=== PATIENT | female | born 1945 | race Caucasian/White ===

== ENCOUNTER → 2016-10-23 | Outpatient (CLI) | payer MEDICARE, OTHER ==
[2015-01-19 16:37] VITALS: BP 127/88
[~2016-10-23] MED LIST: ACET325T9 PO; CALC-77 PO; CETI10CA PO; CLOP75TA57 PO; CRESTOR5 MG PO; GABA-585 PO; LISI1TAB3 PO; OMEP10CA PO
--- NOTE | 2016-10-23 15:20 | RAD ---
INDICATION: SHORTNESS OF BREATH X 10 DAYS COMPARISON: 10/03/2014 FINDINGS: 2 views of chest obtained. Degenerative changes of spine with osteophyte formation. Calcific atherosclerosis without enlargement of cardiac silhouette. Partial visualization of postoperative changes lower cervical spine status post fusion. No definite focal airspace consolidation IMPRESSION: No focal airspace consolidation or edema.
== END | disposition home or self-care (01) ==
LOC: DXRADRC 14:51
PROVIDERS: ATTEND Nurse Practitioner Family
DX: R06.02 Shortness of breath (principal); I70.8 Atherosclerosis of other arteries
CPT/HCPCS: 71020

== ENCOUNTER → 2016-10-26 | Outpatient (CLI) | payer MEDICARE, OTHER ==
[2015-01-19 16:37] VITALS: BP 127/88
[~2016-10-26] MED LIST changes: +IOHEXOL 300 MG/ML 75 ML VIAL. IV ONE; +OXYC-323 PO
--- NOTE | 2016-10-26 15:51 | RAD ---
CT CHEST WITH CONTRAST, PULMONARY ANGIOGRAM History: SOA, increased D-Dimer Comparison: CTA chest dated 10/12/2014 Technique: Helical CT of the chest was performed after the administration of 75 cc of Omnipaque 300 intravenous contrast according to PE protocol. 3-D MIP coronal reconstruction was performed to better evaluate the pulmonary arteries. Findings: Pulmonary arteries are adequately opacified. There is no evidence of pulmonary embolism. The thyroid is symmetric. There is no axillary, mediastinal, or hilar adenopathy. The thoracic aorta diameter is normal. Mild atherosclerosis of the thoracic aorta and its branches. Coronary artery calcifications. Aortic valvular calcifications. Borderline cardiomegaly. Trace pericardial effusion. Biapical subpleural fibrosis. There is no suspicious pulmonary nodule. There is no focal consolidation. No pleural effusion is observed. There is no pneumothorax. The visualized upper abdomen is unremarkable. There are degenerative changes of the thoracic spine. Incompletely visualized anterior cervical fusion hardware. IMPRESSION: 1. There is no CT evidence of pulmonary embolus. 2. Borderline cardiomegaly with trace pericardial effusion. PQRS Compliance Statement: One or more of the following individualized dose reduction techniques were utilized for this examination: 1. Automated exposure control 2. Adjustment of the mA and/or kV according to patient size 3. Use of iterative reconstruction technique
== END | disposition home or self-care (01) ==
LOC: DXRAD 09:07
PROVIDERS: ATTEND Nurse Practitioner Family
DX: I31.3 Pericardial effusion (noninflammatory) (principal); R79.89 Other specified abnormal findings of blood chemistry; I70.0 Atherosclerosis of aorta; I25.10 Atherosclerotic heart disease of native coronary artery without angina pectoris; J94.1 Fibrothorax; M47.894 Other spondylosis, thoracic region
CPT/HCPCS: 71275; Q9967

== ENCOUNTER 2016-10-28 11:52 | Emergency (ER) | payer MEDICARE, OTHER ==
[~2016-10-28] VITALS: Ht 154.9 cm; Wt 59.0 kg
[~2016-10-28 11:52] MED LIST changes: -IOHEXOL 300 MG/ML 75 ML VIAL. IV ONE; -OXYC-323 PO
--- NOTE | 2016-10-28 12:24 | PHYS DOC ---
Past History Past Medical History: Hypertension Past Surgical History: Appendectomy, Hysterectomy, Tonsillectomy Alcohol Use: Rarely Drug Use: None Adult General Chief Complaint Chief Complaint: MECHANICAL FALL HPI HPI Patient is a 70 year old female who presents with complaint of low back pain. Patient states that she injured her back approximately 2-3 hours ago after attempting to move furniture in her home. Patient states that she slipped out of her shoe that caused her to lose her balance and fall directly onto her buttocks. Patient states that she felt severe pain in her mid lower back. The patient states that her symptoms have progressively worsened. Patient states that she has pain with sitting and with movement of her low back. Patient denies radiation of pain into her lower extremities. Patient states that she has developed tightness along her pelvis. Patient states that she has been able to ambulate since the fall but states that this has become increasingly more difficult. Patient rates her pain as 8 out of 10. Patient took Tylenol with no relief of symptoms. Patient has history of rheumatoid arthritis and has had history of transverse myelitis but states that her symptoms have nearly resolved from this episode. Patient states that she did not hit her head, lose consciousness, and is not currently on any blood thinner medication. Review of Systems Review of Systems Constitutional: Denies fever or chills [] Eyes: Denies change in visual acuity, redness, or eye pain [] HENT: Denies nasal congestion or sore throat [] Respiratory: Denies cough or shortness of breath [] Cardiovascular: Denies chest pain or edema [] GI: Denies abdominal pain, nausea, vomiting, bloody stools or diarrhea [] : Denies dysuria or hematuria [] Musculoskeletal: Low back pain [] Integument: Denies rash or skin lesions [] Neurologic: Denies headache, focal weakness or sensory changes [] Allergies Allergies Allergies Coded Allergies Type Severity Reaction Last Updated Verified ibuprofen Allergy Severe 01/19/15 Yes aspirin Allergy Intermediate 01/19/15 Yes Physical Exam Physical Exam Constitutional: Alert, afebrile, appears in moderate to severe discomfort. [] HENT: Normocephalic, atraumatic, bilateral external ears normal, oropharynx moist, no oral exudates, nose normal. [] Eyes: PERRLA, EOMI, conjunctiva normal, no discharge. [] Neck: Normal range of motion, no tenderness, supple, no stridor. [] Cardiovascular:Heart rate regular rhythm, no murmur [] Lungs & Thorax: Bilateral breath sounds clear to auscultation [] Abdomen: Bowel sounds normal, soft, no tenderness, no masses, no pulsatile masses. [] Skin: Warm, dry, no erythema, no rash. [] Back: Lower lumbar midline tenderness to palpation, no crepitus or step-offs, bilateral lower lumbar paraspinous muscle tenderness to palpation. [] Extremities: No tenderness, no cyanosis, no clubbing, ROM intact, no edema. [] Neurologic: Alert and oriented X 3, normal motor function, normal sensory function, no focal deficits noted. [] Current Patient Data Vital Signs Vital Signs Date Time Temp Pulse Resp B/P (MAP) Pulse Ox O2 Delivery O2 Flow Rate FiO2 10/28/16 12:58 10 97 Room Air 10/28/16 12:00 97.8 72 EKG EKG Not performed [] Radiology/Procedures Radiology/[place] [address] IMAGING REPORT Signed PATIENT: CHERYL PAVON ACCOUNT: [id number] : 1945 LOCATION: ER AGE: 70 SEX: F EXAM STATUS: REG ER ORD. PHYSICIAN: DOREEN LEE MD REASON: lower lumbar midline pain status post fall PROCEDURE: LUMBAR SPINE 2-3V Lumbar spine 3 views 10/28/2016 Indication: Low midline back pain post fall. Comparison: None. Findings: There is mild levoconvex lumbar scoliosis. There are mild multilevel lower thoracic and lumbar superior endplate compression deformities at T12, L1, L2, L3, L4 and L5 which are age indeterminate. There is suggestion of an acute fracture line at the superior endplate of L3. No bony retropulsion. There is multilevel lower lumbar facet arthropathy greatest at L4-L5 and L5-S1. Mild multilevel degenerative disc disease with disc space narrowing through the lumbar spine greatest at L4-L5 and L5-S1. There is calcified atheromatous disease of the abdominal aorta. Sacroiliac joints are grossly unremarkable. Impression: 1. Mild age indeterminate multilevel severe endplate compression deformities from T12-L5 without significant bony retropulsion, though there is possibility of an acute fracture line at the anterior-superior L3 vertebral body. If further evaluation is clinically indicated, noncontrast CT L spine could be obtained. 2. Mild multilevel lower lumbar disc degeneration greatest at L4-L5 and L5-S1. 3. Moderate facet hypertrophy at L5-S1. DICTATED AND SIGNED BY: JENNIFER LAKE MD DATE: 10/28/16 1301 CC: DOREEN LEE MD; FILEMON WYNN APRN ~ [address] [address] IMAGING REPORT Signed PATIENT: CHERYL PAVON ACCOUNT: [id number] : 1945 LOCATION: ER AGE: 70 SEX: F EXAM STATUS: REG ER ORD. PHYSICIAN: DOREEN LEE MD REASON: possible acute L3 compression fracture PROCEDURE: CT LUMBAR SPINE WO CONTRAST CT lumbar spine without contrast 10/28/2016 Clinical indication: Possible acute L3 vertebral body fracture. Comparison: Same day L spine radiograph Technique: CT helical acquisition of the lumbar spine without contrast. Coronal and sagittal reformations were obtained from the axial imaged data set. PQRS Compliance Statement: One or more of the following individualized dose reduction techniques were utilized for this examination: 1. Automated exposure control 2. Adjustment of the mA and/or kV according to patient size 3. Use of iterative reconstruction technique CT L-spine: There is mild left convexity lumbar scoliosis. 2 mm of anterolisthesis of L3 on L4. There is diffuse bony demineralization with low attenuation at L1 vertebral body suggestive of osteoporosis. There is mild anterior-superior compression deformities at L1 and L3 with acute appearing fracture lines involving the anterior one half of the vertebral bodies with less than 20% of height loss and no significant bony retropulsion. There is mild, less than 20% to endplate compression deformity at L2 and L4 with no associated acute fracture lines, likely chronic. There is moderate facet hypertrophy on the right at L3-L4. There is multilevel degenerative disc disease of the lumbar spine with disc space narrowing greatest at L3 L4-1 mild degree with concentric disc bulging and a combination with facet hypertrophy with no significant neural foraminal narrowing. At L4-L5, there is a right neural foraminal disc osteophyte protrusion resulting in moderate right neural foraminal narrowing. The paraspinal soft tissues are within normal limits. Calcified atheromatous disease of the visualized abdominal aorta. Impression: 1. Mild acute appearing anterior-superior compression fractures at L1 and L3 vertebral bodies with less than 20% height loss and no significant bony retropulsion. 2. Lumbar disc degeneration and facet hypertrophy resulting in moderate right neural foraminal narrowing at L4-L5. DICTATED AND SIGNED BY: JENNIFER LAKE MD DATE: 10/28/16 7764 CC: DOREEN LEE MD; FILEMON WYNN APRN ~ [] Course & Med Decision Making Course & Med Decision Making Pertinent Labs and Imaging studies reviewed. (See chart for details) The patient was given IM Dilaudid and Decadron in the emergency department. Patient's imaging shows acute fractures of this. Plates of L1 and L3 which appear stable. On reevaluation, the patient states that her pain has improved with medications and patient is able to ambulate in the emergency department to the restroom and back. After discussing with the patient, she would like to pursue outpatient therapy. Patient will continue on oral Percocet for treatment of pain with advise follow-up in the next 2 days with patient's primary doctor for reevaluation. Advised return emergency department for any worsening symptoms. Patient voiced understanding and in agreement with treatment plan. Dragon Disclaimer Dragon Disclaimer This chart was dictated in whole or in part using Voice Recognition software in a busy, high-work load, and often noisy Emergency Department environment. It may contain unintended and wholly unrecognized errors or omissions. Departure Departure: Impression: Primary Impression: Compression fracture of first lumbar vertebra Additional Impression: Compression fracture of third lumbar vertebra Disposition: 01 HOME, SELF-CARE Condition: IMPROVED Referrals: FILEMON WYNN APRN (PCP) Patient Instructions: Back, Compression Fracture Additional Instructions: Follow-up with your primary doctor in 2 days for reevaluation. You may ambulate as tolerated. No heavy lifting greater than 5 pounds, no bending over or stooping. Return to the emergency department for any worsening symptoms. Scripts Oxycodone Hcl/Acetaminophen (PERCOCET 5-325 MG TABLET) 1 Each Tablet 1-2 TAB PO Q4-6HRS Y for PAIN, #40 TAB Prov: DOREEN LEE MD 10/28/16 Problem Qualifiers Primary Impression: Compression fracture of first lumbar vertebra Encounter type: initial encounter Fracture type: closed Qualified Codes: S32.010A - Wedge compression fracture of first lumbar vertebra, initial encounter for closed fracture Additional Impression: Compression fracture of third lumbar vertebra Encounter type: initial encounter Fracture type: closed Qualified Codes: S32.030A - Wedge compression fracture of third lumbar vertebra, initial encounter for closed fracture DOREEN LEE MD Oct 28, 2016 12:24
[2016-10-28] MEDS ORDERED: HYDROmorphone PF 1 MG/ML DISP.SYRIN IM ONE (12:30)
[2016-10-28] MEDS ORDERED: DEXAMETHASONE SOD PHOS 10 MG/ML VIAL IM ONE (12:45)
--- NOTE | 2016-10-28 13:10 | RAD ---
Lumbar spine 3 views 10/28/2016 Indication: Low midline back pain post fall. Comparison: None. Findings: There is mild levoconvex lumbar scoliosis. There are mild multilevel lower thoracic and lumbar superior endplate compression deformities at T12, L1, L2, L3, L4 and L5 which are age indeterminate. There is suggestion of an acute fracture line at the superior endplate of L3. No bony retropulsion. There is multilevel lower lumbar facet arthropathy greatest at L4-L5 and L5-S1. Mild multilevel degenerative disc disease with disc space narrowing through the lumbar spine greatest at L4-L5 and L5-S1. There is calcified atheromatous disease of the abdominal aorta. Sacroiliac joints are grossly unremarkable. Impression: 1. Mild age indeterminate multilevel severe endplate compression deformities from T12-L5 without significant bony retropulsion, though there is possibility of an acute fracture line at the anterior-superior L3 vertebral body. If further evaluation is clinically indicated, noncontrast CT L spine could be obtained. 2. Mild multilevel lower lumbar disc degeneration greatest at L4-L5 and L5-S1. 3. Moderate facet hypertrophy at L5-S1.
--- NOTE | 2016-10-28 14:51 | RAD ---
CT lumbar spine without contrast 10/28/2016 Clinical indication: Possible acute L3 vertebral body fracture. Comparison: Same day L spine radiograph Technique: CT helical acquisition of the lumbar spine without contrast. Coronal and sagittal reformations were obtained from the axial imaged data set. PQRS Compliance Statement: One or more of the following individualized dose reduction techniques were utilized for this examination: 1. Automated exposure control 2. Adjustment of the mA and/or kV according to patient size 3. Use of iterative reconstruction technique CT L-spine: There is mild left convexity lumbar scoliosis. 2 mm of anterolisthesis of L3 on L4. There is diffuse bony demineralization with low attenuation at L1 vertebral body suggestive of osteoporosis. There is mild anterior-superior compression deformities at L1 and L3 with acute appearing fracture lines involving the anterior one half of the vertebral bodies with less than 20% of height loss and no significant bony retropulsion. There is mild, less than 20% to endplate compression deformity at L2 and L4 with no associated acute fracture lines, likely chronic. There is moderate facet hypertrophy on the right at L3-L4. There is multilevel degenerative disc disease of the lumbar spine with disc space narrowing greatest at L3 L4-1 mild degree with concentric disc bulging and a combination with facet hypertrophy with no significant neural foraminal narrowing. At L4-L5, there is a right neural foraminal disc osteophyte protrusion resulting in moderate right neural foraminal narrowing. The paraspinal soft tissues are within normal limits. Calcified atheromatous disease of the visualized abdominal aorta. Impression: 1. Mild acute appearing anterior-superior compression fractures at L1 and L3 vertebral bodies with less than 20% height loss and no significant bony retropulsion. 2. Lumbar disc degeneration and facet hypertrophy resulting in moderate right neural foraminal narrowing at L4-L5.
[2016-10-28] MEDS ORDERED: LIDOCAINE 1% PF 30 ML VIAL. IV ONE (15:15)
[2016-10-28] MEDS ORDERED: oxyCODONE/APAP 5/325 1 TAB TABLET PO ONE (15:15)
[2016-10-28] MEDS ORDERED: OXYC-323 PO (15:48)
[2016-10-28 16:10] VITALS: BP 139/77
== END 2016-10-28 16:10 | disposition home or self-care (01) ==
LOC: ER 11:52
DX: S32.010A Wedge compression fracture of first lumbar vertebra, initial encounter for closed fracture (principal); S32.030A Wedge compression fracture of third lumbar vertebra, initial encounter for closed fracture; I10 Essential (primary) hypertension; M06.9 Rheumatoid arthritis, unspecified; Z88.6 Allergy status to analgesic agent; W01.0XXA Fall on same level from slipping, tripping and stumbling without subsequent striking against object, initial encounter; Y93.89 Activity, other specified; Y99.8 Other external cause status; Y92.89 Other specified places as the place of occurrence of the external cause
CPT/HCPCS: 72100; 72131; 96372; 99284; J1100; J1170

== ENCOUNTER → 2016-12-16 | Outpatient (CLI) | payer MEDICARE, OTHER ==
[~2016-12-16] MED LIST changes: +OXYC-323 PO
--- NOTE | 2016-12-16 10:19 | RAD ---
DATE: 12/16/2016 EXAM: MAMMO JOHN SCREENING BILATERAL HISTORY: Screening COMPARISON: 11/05/2015 This study was interpreted with the benefit of Computerized Aided Detection (CAD). FINDINGS: Breast Density: HETERO The breast parenchyma Is heterogeneiously dense, which could reduce sensitivity of mammography. Breast parenchyma level C. There has been little change in the appearance of the breasts compared to the previous exam IMPRESSION: Benign findings BI-RADS CATEGORY: 2 BENIGN FINDING(S) RECOMMENDED FOLLOW-UP: 12M 12 MONTH FOLLOW-UP PQRS compliance statement: Patient information was entered into a reminder system with a target due date 12/16/2017 for the next mammogram. Mammography is a sensitive method for finding small breast cancers, but it does not detect them all and is not a substitute for careful clinical examination. A negative mammogram does not negate a clinically suspicious finding and should not result in delay in biopsying a clinically suspicious abnormality. "Our facility is accredited by the [employer] Mammography Program."
== END | disposition home or self-care (01) ==
LOC: MAMMO 08:50
PROVIDERS: ATTEND Nurse Practitioner Family
DX: Z12.31 Encounter for screening mammogram for malignant neoplasm of breast (principal)
CPT/HCPCS: 77063; G0202; 77067

== ENCOUNTER → 2017-01-13 | Outpatient (CLI) | payer MEDICARE, OTHER | END | disposition home or self-care (01) | LOC: SURG 09:49 | PROVIDERS: ATTEND Anesthesiology Pain Medicine | DX: M47.896 Other spondylosis, lumbar region (principal); M51.36 Other intervertebral disc degeneration, lumbar region; M06.9 Rheumatoid arthritis, unspecified; M62.838 Other muscle spasm; I10 Essential (primary) hypertension; E78.5 Hyperlipidemia, unspecified | CPT/HCPCS: 99204 ==

== ENCOUNTER → 2017-02-03 | Outpatient (CLI) | payer MEDICARE, OTHER ==
[~2017-02-03] MED LIST changes: +BUPIVACAINE MPF 0.5% 30 ML VIAL. ONE; +LIDOCAINE 1% PF 30 ML VIAL. ONE
== END | disposition home or self-care (01) ==
LOC: SURG 13:34
PROVIDERS: ATTEND Anesthesiology Pain Medicine
DX: M47.816 Spondylosis without myelopathy or radiculopathy, lumbar region (principal); M19.91 Primary osteoarthritis, unspecified site; Z88.6 Allergy status to analgesic agent; Z88.8 Allergy status to other drugs, medicaments and biological substances
CPT/HCPCS: 64493; 64494; J2001; J3490

== ENCOUNTER → 2017-02-19 | Outpatient (CLI) | payer MEDICARE, OTHER | LOC: SURG 11:29 | PROVIDERS: ATTEND Anesthesiology Pain Medicine | DX: M12.88 Other specific arthropathies, not elsewhere classified, other specified site (principal) | CPT/HCPCS: 64493; 64494; 64495; J2001; J3490 ==